=== PATIENT | male | born 1945 | race Caucasian/White ===

== ENCOUNTER → 2017-07-16 | Outpatient (CLI) | payer OTHER, MEDICARE | LOC: BMCIMAGING 14:09 | PROVIDERS: ATTEND Internal Medicine | DX: G89.29 Other chronic pain (principal); M19.011 Primary osteoarthritis, right shoulder; R93.8 Abnormal findings on diagnostic imaging of other specified body structures; M19.012 Primary osteoarthritis, left shoulder; M19.041 Primary osteoarthritis, right hand; M19.042 Primary osteoarthritis, left hand | CPT/HCPCS: 73030-PO; 73130-PO ==